=== PATIENT | male | born 1965 | race Native Hawaiian/Other Pacific Islander ===

== ENCOUNTER 2021-06-23 08:35 | Outpatient (CLI) | payer OTHER ==
[~2021-06-23 08:35] MED LIST: AMOXICILLIN500 MG PO; CLINDAMYCIN150 MG PO; HYDROCO/APAP1 T10 PO
== END 2021-06-23 20:24 | disposition home or self-care (01) ==
LOC: US 08:35
PROVIDERS: ATTEND Physician Assistant Medical
DX: R94.5 Abnormal results of liver function studies (principal)

== ENCOUNTER 2022-08-24 12:17 | Outpatient (CLI) | payer OTHER | END 2022-08-24 20:51 | disposition home or self-care (01) | LOC: CT 12:17 | PROVIDERS: ATTEND Physician Assistant Medical | DX: E78.3 Hyperchylomicronemia (principal); Z13.6 Encounter for screening for cardiovascular disorders ==